=== PATIENT | male | born 1980 | race Caucasian/White ===

== ENCOUNTER 2017-04-03 03:57 | Emergency (ER) | payer SELFPAY ==
[~2017-04-03] VITALS: Ht 190.5 cm; Wt 92.1 kg
--- NOTE | 2017-04-03 04:15 | NUR ---
TO BED 6 A 36 YO MALE PATIENT BIBSELF AND SAID HE FELT ANXIOUS W/ HEART RACING S/P INGESTING THC HEMP OIL UNDER TONGUE. NAD NOTED. VSS. NONDIAPHORETIC. VS MONITORING ON. GOWNED. COMFORT MEASURES IN PLACE.
[2017-04-03] MEDS ORDERED: LORAZEPAM INJ 2 MG/ML VIAL ONE (04:30)
[2017-04-03] MEDS ORDERED: LORAZEPAM INJ 2 MG/ML VIAL IM ONE (04:30)
--- NOTE | 2017-04-03 04:37 | NUR ---
MEDICATED PATIENT ORDERED BY DR JUNIOR.
--- NOTE | 2017-04-03 05:32 | NUR ---
Patient discharged to home in stable condition. Written and verbal after care instructions given. Patient verbalizes understanding of instruction. Patient is ambulatory with steady gait, accompanied by friend. Instructed not to drive. Nad on dc. vss. No further complaints.
[2017-04-03 05:33] VITALS: BP 127/75
== END 2017-04-03 05:33 | disposition home or self-care (01) ==
LOC: ER 03:59
DX: F41.9 Anxiety disorder, unspecified (principal); F12.10 Cannabis abuse, uncomplicated
CPT/HCPCS: 93005; 96372; 99284; A4606; J2060; Z7610